=== PATIENT | male | born 1950 | race Caucasian/White ===

== ENCOUNTER 2022-11-29 18:38 | Emergency (ER) | payer MEDICARE ==
[~2022-11-29] VITALS: Ht 180.3 cm; Wt 82.7 kg
[2022-11-29 19:23] LABS: BASOPHILS # (AUTO) 0.1 X10'3 (0-0.2); BASOPHILS % (AUTO) 1.3 % (0-1); EOSINOPHILS # (AUTO) 0.1 X10'3 (0-0.9); EOSINOPHILS % (AUTO) 1.3 % (0-6); HEMATOCRIT 39.1 % (42.0-52.0); HEMOGLOBIN 13.6 g/dl (14.0-17.9); LYMPHOCYTES # (AUTO) 0.8 X10'3 (1.1-4.8); LYMPHOCYTES % (AUTO) 8.9 % (21-51); MEAN CORPUSCULAR HEMOGLOBIN 33.8 PG (27.0-31.0); MEAN CORPUSCULAR HGB CONC 34.8 g/dL (33.0-36.5); MEAN CORPUSCULAR VOLUME 97.3 FL (78-98); MEAN PLATELET VOLUME 6.1 FL (7.4-10.4); MONOCYTES # (AUTO) 0.7 X10'3 (0-0.9); MONOCYTES % (AUTO) 7.5 % (2-12); NEUTROPHILS # (AUTO) 7.2 X10'3 (1.8-7.7); PLATELET COUNT 302 X10'3 (140-440); RED BLOOD COUNT 4.02 X10'6 (4.70-6.10); RED CELL DISTRIBUTION WIDTH 13.1 % (11.5-14.5); WHITE BLOOD COUNT 8.9 X10'3 (4.5-11.0)
[2022-11-29] MEDS ORDERED: normal saline 1000ML IV soln IVB ONE ×2 (19:30→20:40)
[2022-11-29] MEDS ORDERED: morphine 4 MG/ML inj SYRINge IV ONE (19:30)
[2022-11-29] MEDS ORDERED: ondansetron/PF 4mg/2ml inj IV ONE (19:30)
[2022-11-29 19:35] VITALS: BP 131/76
[2022-11-29] MEDS ORDERED: ketorolac tromethamine 15mg/ml inj. IV ONE (20:00)
[2022-11-29] MEDS ORDERED: ketorolac trometh. 30mg/ml inj. IV ONE (20:00)
[2022-11-29 20:06] LABS: ALANINE AMINOTRANSFERASE 25 U/L (12-78); ALBUMIN 3.9 G/DL (3.4-5.0); ALBUMIN/GLOBULIN RATIO 1.2 (1.1-1.5); ALKALINE PHOSPHATASE 146 IU/L (46-116); ANION GAP 11 (8-16); ASPARTATE AMINO TRANSFERASE 23 U/L (10-37); BILIRUBIN,TOTAL 0.8 MG/DL (0.1-1.0); BLOOD UREA NITROGEN 22 MG/DL (7-18); BUN/CREATININE RATIO 17.7 (10.0-20.0); CALCIUM 8.8 MG/DL (8.5-10.1); CHLORIDE 104 MMOL/L (99-107); CREATININE 1.24 MG/DL (0.60-1.10); GLUCOSE 128 MG/DL (70-104); LIPASE < 50 U/L (73-393); POTASSIUM 4.2 MMOL/L (3.5-5.1); SODIUM 136 MMOL/L (135-145); TOTAL CARBON DIOXIDE 21.5 MMOL/L (24-32); TOTAL PROTEIN 7.2 G/DL (6.4-8.2); eGFR 57 ML/MIN
--- NOTE | 2022-11-29 20:26 | NUR ---
GAVE HIM A URINAL AND PRESSURE BAG ON IV PUMPED AGAIN. HE STATES HE DOESN'T NEED TO URINATE NOW. MD AWARE, HE WAS IN TO TALK TO THE PATIENT.
[2022-11-29] MEDS ORDERED: ringers solution, lactated 1000ml IV soln IV ONE (20:45)
[2022-11-29] MEDS ORDERED: ONDA4TAB12 PO (21:31)
--- NOTE | 2022-11-29 22:03 | NUR ---
UP TO BR TO STOOL AND URINATE. VOIDED 50MLS. SENT THAT TO LAB.
[2022-11-29 22:05] LABS: CLARITY,URINE SLIGHTLY CLOUDY (Clear); COLOR,URINE YELLOW (Yellow); GLUCOSE, URINE NEGATIVE (Neg); KETONES,URINE TRACE mg/dl (Neg); LEUKOCYTE ESTERASE ,URINE TRACE (Neg); NITRITES, URINE NEGATIVE (Neg); OCCULT BLOOD,URINE LARGE (Neg); PROTEIN,URINE NEGATIVE (Neg)
[2022-11-29 22:09] LABS: UA COLLECTION TYPE VOIDED
[2022-11-29] MEDS ORDERED: cephalexin 250mg capsule PO ONE (22:10)
[2022-11-29 22:13] LABS: BACTERIA,URINE FEW /HPF (Neg); RBC,URINE TNTC /HPF (0-2); SQUAMOUS EPITHELIAL CELL,UR FEW /LPF (FEW); TRANSITIONAL EPI CELLS,URINE FEW /HPF
[2022-11-29] MEDS ORDERED: CEPH-585 PO (22:15)
--- NOTE | 2022-11-29 23:03 | NUR ---
IV DC'D PT BEING DISCHARGED DRESSING APPLIED
== END 2022-11-29 23:08 | disposition home or self-care (01) ==
LOC: ER 18:39
DX: N20.0 Calculus of kidney (principal); Z79.899 Other long term (current) drug therapy
CPT/HCPCS: 36415; 74176; 80053; 81001; 83605; 83690; 84145; 85025; 87088; 96361; 96374; 96375; 99285; J1885; J2270; J2405; J7030; J7120